=== PATIENT | male | born 1950 | race African-American/Black ===

== ENCOUNTER → 2017-04-12 | Outpatient (CLI) | payer OTHER | LOC: CIMAGING 10:27 | PROVIDERS: ATTEND Internal Medicine | DX: K30 Functional dyspepsia (principal); I71.4 Abdominal aortic aneurysm, without rupture | CPT/HCPCS: 76705-PO ==

== ENCOUNTER 2018-04-08 07:43 | Inpatient (IN) | payer OTHER ==
[2018-04-08] MEDS ORDERED: IOPAMIDOL (ISOVUE-300) 100 ML BTL ONE (07:52)
[2018-04-08 08:01] LABS: PLATELET COUNT 215 10^3/uL (150-400)
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
[2018-04-08] MEDS ORDERED: fentaNYL 100 MCG/2 ML INJ ONE ×2 (08:06→18:06)
[2018-04-08 08:08] LABS: INR 1.14 (0.83-1.16); PROTIME(PATIENT) 14.8 SEC (12.0-15.0)
[2018-04-08] MEDS ORDERED: fentaNYL 100 MCG/2 ML INJ IVP ONE (08:27)
[2018-04-08] MEDS ORDERED: LET GEL TOPICAL 1 EA SYR TP ONE (08:33)
--- NOTE | 2018-04-08 09:45 | CPEKG ---
Heart Rate: 87 RR Interval: 690 P-R Interval: 180 QRSD Interval: 62 QT Interval: 348 QTC Interval: 419 P [place]: 60 QRS [place]: 10 T Wave [place]: 48 EKG Severity - NORMAL ECG - EKG Impression: SINUS RHYTHM Electronically Signed By: Doug Trujillo 08-Apr-2018 14:13:38
[2018-04-08] MEDS ORDERED: ceFAZolin 2 GM/DEXTROSE 100 ML IV ONE (11:56)
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
[2018-04-08] MEDS ORDERED: NALOXONE HCL 0.4 MG/ML INJ IVP PRN ×3 (13:26→19:24)
[2018-04-08] MEDS ORDERED: ONDANSETRON 4 MG/2 ML VIAL IVP PRN ×2 (13:26→17:32)
[2018-04-08] MEDS ORDERED: LR 1,000 ML IV SCH (13:30)
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
[2018-04-08] MEDS ORDERED: LR 1,000 ML IV ONE (14:23)
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
[2018-04-08] MEDS ORDERED: BUPIVACAINE/EPI 0.5% 30 ML SDV ONE (15:38)
[2018-04-08] MEDS ORDERED: BUPIVACAINE 0.25% 30 ML SDV ONE (15:38)
[2018-04-08] MEDS ORDERED: EPINEPHrine 1 MG/ML INJ ONE (15:38)
[2018-04-08] MEDS ORDERED: LIDOCAINE 1% 300 MG/30 ML SDV ONE (15:38)
[2018-04-08] MEDS ORDERED: MIDAZOLAM 2 MG/2 ML VIAL IVP ONE (15:41)
[2018-04-08] MEDS ORDERED: fentaNYL 250 MCG/5 ML INJ ONE (15:44)
[2018-04-08] MEDS ORDERED: PROPOFOL 200 MG/20 ML VIAL ONE (15:45)
[2018-04-08] MEDS ORDERED: ONDANSETRON 4 MG/2 ML VIAL ONE (15:51)
[2018-04-08] MEDS ORDERED: SUGAMMADEX SODIUM 200 MG/2 ML VIAL IVP ONE (15:51)
[2018-04-08] MEDS ORDERED: ROCURONIUM 100 MG/10 ML VIAL ONE (15:51)
[2018-04-08] MEDS ORDERED: DEXAMETHASONE 4 MG/ML VIAL ONE (15:51)
[2018-04-08] MEDS ORDERED: LIDOCAINE 2% 5 ML SDV ONE (15:51)
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
[2018-04-08] MEDS ORDERED: PHENYLEPHRINE HCL 100 MCG/ML SYR ONE (16:51)
[2018-04-08] MEDS ORDERED: LR 500 ML IV PRN (17:32)
[2018-04-08] MEDS ORDERED: oxyCODONE IR 5 MG TAB PO PRN (17:32)
[2018-04-08] MEDS ORDERED: PROMETHAZINE HCL 25 MG/ML INJ IVP PRN (17:32)
[2018-04-08] MEDS ORDERED: fentaNYL 100 MCG/2 ML INJ IVP PRN (17:32)
[2018-04-08] MEDS ORDERED: ALBUTEROL 3 ML DEYVIAL IH PRN (17:32)
[2018-04-08] MEDS ORDERED: HYDROCODONE/APAP 5/325 TAB PO PRN (17:32)
[2018-04-08] MEDS ORDERED: ACETAMINOPHEN 500 MG TAB PO PRN (17:32)
--- NOTE | 2018-04-08 17:32 | POSTANESTH ---
Post Anesthetic Evaluation Cardiovascular Status: Tx Hyper/Hypo-tension Respiratory Status: Tx Decrease in SpO2 Level of Consciousness/Mental Status: Can Participate in Eval, Moderately Sleepy Pain Control: Adequate, Prn Tx Ordered Nausea/Vomiting Control: Adequate, Prn Tx Ordered Complications Possibly Related to Anesthesia: None Noted
[2018-04-08] MEDS ORDERED: DIPHENOXYLATE/ATROPINE LOMOTIL 1 TAB PO PRN (17:56)
[2018-04-08] MEDS ORDERED: TEMAZEPAM 15 MG CAP PO PRN (17:56)
--- NOTE | 2018-04-08 18:03 | POSTOPPROG ---
Post Op Note Date of Operation: 04/08/18 Surgeon: Parker Kingston Tempering Machine Operator: BRIGID Peralta Anesthesia: GET(General Endotracheal) Pre-op Diagnosis: Left femoral neck fracture Post-op Diagnosis: Left femoral neck fracture Procedure: Left hip ORIF of femoral neck fracture Inf/Abcess present in the surg proc area at time of surgery?: No Depth: Deep Incisional (Fascial) EBL: Minimal
[2018-04-08] MEDS ORDERED: LABETALOL HCL 5 MG/ML 20 ML MDV ONE (18:07)
[2018-04-08] MEDS ORDERED: HYDROmorphONE/DILAUDID 1 MG/ML INJ ONE (18:12)
[2018-04-08] MEDS: LABETALOL HCL 5 MG/ML 20 ML MDV IVP PRN ×2 (18:17→18:28)
[2018-04-08] MEDS: HYDROmorphONE/DILAUDID 1 MG/ML INJ IVP PRN ×2 (18:17→18:31)
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
[2018-04-08] MEDS ORDERED: HYDROmorphONE/DILAUDID 6 MG/30 ML PCA IV PRN (19:24)
[2018-04-08] MEDS: D5W 1/2 NS 1,000 ML IV SCH (19:46)
[2018-04-08] MEDS: FAMOTIDINE 20 MG/NACL 50 ML IV SCH ×2 (20:55→20:58)
--- NOTE | 2018-04-08 22:31 | POSTOPPROG ---
Post Op Note Date of Operation: 04/08/18 Surgeon: Sp Mohamud Anesthesiologist: BILLY Anesthesia: GET(General Endotracheal) Pre-op Diagnosis: RIB FRACTURES AND LEFT PNEUMOTHORAX Post-op Diagnosis: SAME Indication: PAIN SHORTNESS OF BREATH Procedure: LEFT TUBE THORACOSTOMY Findings: GOOD EXPANSION OF THE LUNG Inf/Abcess present in the surg proc area at time of surgery?: No Depth: Organ Space EBL: Minimal Complications: NONE Drains: Constavac
[2018-04-08] MEDS: ceFAZolin 2 GM/DEXTROSE 100 ML IV SCH (23:23)
[2018-04-09 21:00] LABS: PLATELET COUNT 144 10^3/uL (150-400)
[2018-04-10] MEDS: FAMOTIDINE 20 MG/NACL 50 ML IV SCH ×3 (05:11→08:37)
[2018-04-10] MEDS: ASPIRIN 81 MG CHEWABLE TAB PO SCH ×2 (05:11→08:37)
[2018-04-10] MEDS: RANOLAZINE 500 MG TAB.ER PO SCH ×3 (05:12→20:45)
[2018-04-10] MEDS: METOPROLOL TARTRATE 25 MG TAB PO SCH ×3 (05:12→20:47)
[2018-04-10] MEDS: ceFAZolin 2 GM/DEXTROSE 100 ML IV SCH (08:06)
--- NOTE | 2018-04-10 08:55 | SOAPPROG ---
SOAP Progress Note Assessment/Plan: Assessment: POD #2 closed reduction/internal fixation of left femoral neck fx: doing well, pain well controlled. Plan: TTWB. DVT prophylaxis: SCDs, IS, ANKITA ferreira. Continue chemoprophylaxis per trauma and hospitalists. PT/OT: appreciate their reccs. Pain: well controlled at this time. Dressing: maintain dry dressing over left hip, do not remove until d/w our office. Can continue to change abrasion dressings with dry dressing. F/U in clinic in 7-10 days or prn additional questions/concerns which may arise. Patient d/w and agreed upon in conjunction with Dr. Kingston. Subjective: Doing well, alone in room, able to respond appropriately to questions. Has passed flatus, no BM. Denies fever, chills, NVD, change in heat/color of extremity or around wound sites, worsening cough, congestion, dyspnea, worsening numbness/tingling, claudication. Has been attempting to ambulate with help of PT/OT. Objective: Vital Signs Temp Pulse Resp BP Pulse Ox 36.7 C 77 16 175/99 H 98 04/10/18 07:44 04/10/18 08:37 04/10/18 07:44 04/10/18 08:37 04/10/18 07:44 Laboratory Results 04/10/18 04:53 04/09/18 04:40 04/09/18 04/10/18 04/11/18 05:59 05:59 05:59 Intake Total 550 1600 Output Total 590 675 950 Balance -40 925 -950 PT 14.8 SEC (12.0-15.0) 04/08/18 07:30 INR 1.14 (0.83-1.16) 04/08/18 07:30 A/O. NAD. Non-labored breathing. CT in place. RRR. Afebrile. M/S: Wound sites with no abnormal bleeding/oozing/discharge, change in heat/ color. Multiple abrasions noted, covered with Tefla and no signs of infection at this time. TTP over left ribs, otherwise NTTP. Full AROM b/l in UE with 5/5 strength and no focal deficits. AROM of lower extremities: full AROM distally from left hip on with 5/5 strength present b/l in distal lower extremities b/l. Calves soft/supple and NTTP b/l with SCDs on and pumping. Brisk cap refill b/ l with negative b/l Homans. DNVI b/l in UE/LE with gross sensation intact and no signs of focal deficit. ICD10 Worksheet Patient Problems: Problems Problem Status Onset Abrasion, multiple sites Acute Flail chest Acute Pneumothorax Acute
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
[2018-04-10] MEDS: ENOXAPARIN 40 MG/0.4 ML SYR SC SCH (12:36)
[2018-04-10] MEDS: D5W 1/2 NS 1,000 ML IV SCH (13:59)
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
[2018-04-10] MEDS ORDERED: HYDROmorphONE/DILAUDID 1 MG/ML INJ IVP PRN (15:02)
[2018-04-10] MEDS ORDERED: METOPROLOL TARTRATE 25 MG TAB PO ONE (15:02)
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
[2018-04-10] MEDS: FAMOTIDINE 20 MG TAB PO SCH (20:45)
[2018-04-10] MEDS: HYDROmorphONE/DILAUDID 2 MG TAB PO PRN (20:45)
--- NOTE | 2018-04-10 20:59 | GPROG ---
[f rep st] PROGRESS NOTE DATE OF SERVICE: 04/09/2018 Please note that this a repeat dictation for the visit on 04/09/2018 due to problems with [employer] and the computer system, it was stated by the IT department that my note from yesterday has been lost. This is, therefore, a repeat dictation for continuity and care for the patient. ASSESSMENT: Closed reduction, internal fixation of left femoral neck fracture, doing well. Pain well-controlled, currently in the ICU. PLAN: TTWB, deep venous thrombosis prophylaxis, SCDs, IS, ANKITA ferreira, continue chemoprophylaxis per Trauma and Hospitalist. PT/OT: Appreciate their recommendations. Pain well-controlled at this time stressing maintain dry dressing over left hip. Do not remove until discussed with our office. Can continue to change abrasion dressings with dry dressings daily or p.r.n. hospital recommendations. Follow up in clinic in 7-10 days or p.r.n. additional questions or concerns which my arise. Advised patient to watch for any worsening change in range of motion or strength, abnormal numbness, tingling, change in heat or color of the extremity or around the wound site, and to seek immediate medical attention if seen. The patient was discussed with and agreed upon in conjunction with Dr. Kingston. SUBJECTIVE: Doing well, alone in room, able to respond appropriately to questions. States he is starting to feel "stronger," has passed flatus. No BM. Denies fever, chills, NVD, change in heat or color of the extremity or around wound sites, worsening cough, congestion, chest pain, dyspnea, worsening numbness, tingling, claudication. He has been not yet ambulatory at this time. OBJECTIVE: VITAL SIGNS: Temp 37.6 C, Pulse 60, Resp. rate 13 , BP 143/92 mmHg , O2 Sat 95% . GENERAL: AO/NAD. Non-labored breathing. CHEST: Chest tube in place. Regular rate and rhythm, afebrile. MUSCULOSKELETAL: Wound sites with no abnormal bleeding, oozing, discharge, change in heat or color. Multiple abrasions are noted. Covered with Telfa. No signs of infection at this time. TTP over left ribs. Otherwise NTTP. EXTREMITIES: Full AROM b/l in upper extremities with 5/5 strength. NEUROLOGICAL: No focal deficits. AROM of lower extremities: full AROM distally, left hip with 5/5 strength present bilaterally in distal lower extremities. Calves soft, supple and NTTP b/l with SCDs on, and brisk capillary refill b/l with negative b/l Homans. DNVI b/l in upper extremities, lower extremities with gross sensation intact and no signs of focal deficits. NECK: Full AROM. NTTP. Negative Lhermitte. Negative Spurling. RADIOLOGY: X-rays: Two postoperative views of his left hip show left hip closed reduction internal fixation in good position and alignment in the femoral neck with no evidence of fracture failure or hardware at this time. No other fractures, malalignments or deformities noted. Fracture line in good position and alignment. /[id number]/MODL MTDD
[2018-04-11] MEDS: HYDROmorphONE/DILAUDID 2 MG TAB PO PRN ×2 (06:25→19:17)
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
[2018-04-11] MEDS ORDERED: LACTULOSE 20 GM/30 ML UDCUP PO PRN (08:34)
[2018-04-11] MEDS ORDERED: POLYETHYLENE GLYCOL 3350 17 GM PKT PO PRN (08:34)
[2018-04-11] MEDS ORDERED: MAGNESIUM HYDROXIDE 30 ML UDCUP PO PRN (08:34)
[2018-04-11] MEDS ORDERED: BISACODYL 10 MG SUPP PR PRN (08:34)
[2018-04-11] MEDS: METOPROLOL TARTRATE 25 MG TAB PO SCH ×2 (09:03→20:37)
[2018-04-11] MEDS: FAMOTIDINE 20 MG TAB PO SCH ×2 (09:03→20:36)
[2018-04-11] MEDS: ENOXAPARIN 40 MG/0.4 ML SYR SC SCH (09:03)
[2018-04-11] MEDS: ASPIRIN 81 MG CHEWABLE TAB PO SCH (09:03)
[2018-04-11] MEDS: RANOLAZINE 500 MG TAB.ER PO SCH ×2 (09:03→20:35)
[2018-04-11] MEDS: SENNOSIDES/DOCUSATE SODIUM TAB PO SCH ×2 (09:06→20:36)
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
[2018-04-11 10:28] LABS: PLATELET COUNT 121 10^3/uL (150-400)
--- NOTE | 2018-04-11 12:37 | ASMTCMCOM ---
CM Note CM Note Notes: Patient had surgery yesterday, 04-10-18. Patient working with therapies. PT/OT are recommending inpatient rehab. Will await their evaluation. CM will follow. Date Signed: 04/11/2018 12:35 PM Electronically Signed By:Dee Dee Suarez LCSW
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
[2018-04-12 05:56] LABS: PLATELET COUNT 126 10^3/uL (150-400)
[2018-04-12] MEDS: SENNOSIDES/DOCUSATE SODIUM TAB PO SCH ×2 (08:49→21:28)
[2018-04-12] MEDS: ENOXAPARIN 40 MG/0.4 ML SYR SC SCH (08:49)
[2018-04-12] MEDS: RANOLAZINE 500 MG TAB.ER PO SCH ×2 (08:49→21:29)
[2018-04-12] MEDS: ASPIRIN 81 MG CHEWABLE TAB PO SCH (08:49)
[2018-04-12] MEDS: FAMOTIDINE 20 MG TAB PO SCH ×2 (08:49→21:29)
[2018-04-12] MEDS: METOPROLOL TARTRATE 25 MG TAB PO SCH ×2 (08:55→21:29)
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
--- NOTE | 2018-04-12 12:49 | ASMTCMCOM ---
CM Note CM Note Notes: PT/OT continuing to recommend Inpatient Rehab, although patient is making gains. Pain control is still an issue. I spoke with Inpatient Rehab who isn't sure if he qualifies. They will have to reassess Sunday; they cannot take patients over the weekend. I spoke with patient about his desires - SNF, home care, etc - and he wanted to talk to his first. I spoke with her, she will not be in until later today. We will work with the patient once he and his have discussed. I anticipate he may need SNF v home care, although he has been making gains quickly. Case Management will follow. Date Signed: 04/12/2018 12:48 PM Electronically Signed By:Crystal Vazquez RN
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
[2018-04-12] MEDS: APIXABAN 5 MG TAB PO SCH (21:29)
[2018-04-13] MEDS: SENNOSIDES/DOCUSATE SODIUM TAB PO SCH ×2 (09:23→21:15)
[2018-04-13] MEDS: APIXABAN 5 MG TAB PO SCH ×2 (09:24→21:15)
[2018-04-13] MEDS: ASPIRIN 81 MG CHEWABLE TAB PO SCH (09:24)
[2018-04-13] MEDS: RANOLAZINE 500 MG TAB.ER PO SCH ×2 (09:24→21:15)
[2018-04-13] MEDS: FAMOTIDINE 20 MG TAB PO SCH ×2 (09:24→21:15)
[2018-04-13] MEDS: METOPROLOL TARTRATE 25 MG TAB PO SCH ×2 (09:31→21:15)
[2018-04-13] MEDS ORDERED: ONDANSETRON DISINTEGRATING 4 MG TAB PO PRN (09:34)
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
[2018-04-13] MEDS: BACITRACIN OINTMENT 1 PACKET TP SCH (10:00)
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
--- NOTE | 2018-04-13 16:48 | ASMTCMCOM ---
CM Note CM Note Notes: PT recommending HHC w/24 hr supervision now, OT still recommending IPR. CM met w/pt and he felt he might be ok to dc home w/HHC but would like for us to check in with him again tomorrow after he works with therapy. He lives at home w/. CM will follow. Date Signed: 04/13/2018 04:47 PM Electronically Signed By:Bozena العلي RN
[2018-04-14] MEDS ORDERED: HYDROCODONE/APAP 5/325 TAB PO PRN (00:54)
[2018-04-14] MEDS ORDERED: ACETAMINOPHEN 325 MG TAB PO PRN (00:54)
[2018-04-14] MEDS: METOPROLOL TARTRATE 25 MG TAB PO SCH ×2 (07:51→20:30)
[2018-04-14] MEDS: HYDROCODONE/APAP 10/325 TAB PO PRN (07:55)
[2018-04-14] MEDS: RANOLAZINE 500 MG TAB.ER PO SCH ×2 (07:55→20:30)
[2018-04-14] MEDS: APIXABAN 5 MG TAB PO SCH ×2 (07:56→20:30)
[2018-04-14] MEDS: FAMOTIDINE 20 MG TAB PO SCH ×2 (07:56→20:30)
[2018-04-14] MEDS: SENNOSIDES/DOCUSATE SODIUM TAB PO SCH ×2 (07:56→20:30)
[2018-04-14] MEDS: ASPIRIN 81 MG CHEWABLE TAB PO SCH (07:57)
[2018-04-14] MEDS: BACITRACIN OINTMENT 1 PACKET TP SCH (07:57)
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
--- NOTE | 2018-04-14 15:11 | ASMTCMCOM ---
CM Note CM Note Notes: Chart reviewed. Per therapies, recommendation is for C to follow. discussed with patient and he is agreeable. Referrals placed in allscripts. Pending acceptance. CM o follow. Plan: Home with HHC Date Signed: 04/14/2018 03:10 PM Electronically Signed By:Shayy Azevedo RN
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
[2018-04-15] MEDS: METOPROLOL TARTRATE 25 MG TAB PO SCH (07:56)
[2018-04-15] MEDS: RANOLAZINE 500 MG TAB.ER PO SCH (07:59)
[2018-04-15] MEDS: APIXABAN 5 MG TAB PO SCH (08:00)
[2018-04-15] MEDS: FAMOTIDINE 20 MG TAB PO SCH (08:00)
[2018-04-15] MEDS: ASPIRIN 81 MG CHEWABLE TAB PO SCH (08:00)
[2018-04-15] MEDS: SENNOSIDES/DOCUSATE SODIUM TAB PO SCH (08:00)
[2018-04-15] MEDS: HYDROCODONE/APAP 10/325 TAB PO PRN (08:01)
[2018-04-15 08:05] VITALS: BP 159/108
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
[2018-04-15] MEDS: BACITRACIN OINTMENT 1 PACKET TP SCH (10:00)
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
--- NOTE | 2018-04-15 14:17 | PDIAF ---
- Diagnosis Code Status: Full Code - Medication Management Discharge Medications: Medications to Continue on Transfer Apixaban [Eliquis] 5 mg PO BID 04/08/18 [Last Taken Unknown] Aspirin [Aspirin 81mg (*)] 81 mg PO DAILY 04/08/18 [Last Taken Unknown] Clopidogrel Bisulfate [Plavix (*)] 75 mg PO DAILY 04/08/18 [Last Taken Unknown] Dicyclomine [Bentyl 10 MG (*)] 20 mg PO QID PRN 04/08/18 [Last Taken Unknown] Metoprolol Tartrate [Lopressor 25 mg (*)] 12.5 mg PO BID 04/08/18 [Last Taken Unknown] Omeprazole 40 mg PO DAILY 04/08/18 [Last Taken Unknown] Ranolazine [Ranexa] 500 mg PO BID 04/08/18 [Last Taken Unknown] Bacitracin Ointment 1 marbella TP DAILY #30 packet 04/15/18 [Last Taken Unknown] Hydrocodone/APAP 5/325 [Price 5/325 (*)] 1 tab PO Q4HRS PRN #30 tab 04/15/18 [ Last Taken Unknown] Metoprolol Tartrate [Lopressor 25 mg (*)] 50 mg PO BID #30 tab 04/15/18 [Last Taken Unknown] Discharge Medications: Refer to the Discharge Home Medication list for PRN reason. - Orders Services needed: Home Care, Registered Nurse, Physical Therapy, Occupational Therapy Home Care Face to Face: I certify that this patient was under my care and that I had the required [id number] encounter meeting the encounter requirements on the discharge day. My findings support the fact that the patient is homebound as defined in Home Care Face to Face Continued: CMS Chapter 7 Medicare Benefits Manual 30.1.1 , The condition of the patient is such that there exists a normal inability to leave home and consequently, leaving home would require a considerable and taxing effort. Diet Recommendation: no restrictions on diet Diet Texture: Regular Texture Diet Additional Instructions: Regarding Left Hip Fracture Plan: TTWB. DVT prophylaxis: SCDs, IS, ANKITA ferreira. Continue chemoprophylaxis per trauma and hospitalists. PT/OT for ambulation with safe precautions. Dressing: maintain dry dressing over left hip, do not remove until d/w our office. Can continue to change abrasion dressings with dry dressing. F/U in clinic with Dr. Kingston in 7-10 days or prn additional questions/ concerns which may arise. Can call our office at [phone] to schedule. Call our office with fever, chills, change in heat/color of extremity, worsening change in ROM or strength, abnormal numbness/tingling. - Follow Up Care Current Providers and Referrals: Parker Kingston MD [Medical Doctor] - (10-14 days ) Patient,NotPresent [Unknown] - As per Instructions
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
== END 2018-04-15 15:55 | disposition home health service (06) | DRG 956 ==
LOC: EDUNIT# → F2N 10:51 → F3N 04-11 14:22
PROVIDERS: ADMIT Surgery; ATTEND Surgery
PROC: 0QS704Z Reposition Left Upper Femur with Internal Fixation Device, Open Approach (ICD-10-PCS; principal; 2018-04-08 16:00)
PROC: 0B9L30Z Drainage of Left Lung with Drainage Device, Percutaneous Approach (ICD-10-PCS; principal; 2018-04-08 16:00)
DX: S72.002A Fracture of unspecified part of neck of left femur, initial encounter for closed fracture (principal); S22.43XA Multiple fractures of ribs, bilateral, initial encounter for closed fracture; S27.0XXA Traumatic pneumothorax, initial encounter; J98.11 Atelectasis; V18.0XXA Pedal cycle driver injured in noncollision transport accident in nontraffic accident, initial encounter; I10 Essential (primary) hypertension; K59.00 Constipation, unspecified; I71.4 Abdominal aortic aneurysm, without rupture; I71.2 Thoracic aortic aneurysm, without rupture; K76.89 Other specified diseases of liver; K21.9 Gastro-esophageal reflux disease without esophagitis; I25.10 Atherosclerotic heart disease of native coronary artery without angina pectoris; E78.5 Hyperlipidemia, unspecified; Z95.5 Presence of coronary angioplasty implant and graft; Z86.718 Personal history of other venous thrombosis and embolism; Z79.01 Long term (current) use of anticoagulants
CPT/HCPCS: 82435-PO; 82565-PO; 82947-PO; 84132-PO; 84295-PO; 84520-PO; 85014-PO; 92507-GN; 92523-GN; 96374; 97110-GP; 97116-GP; 97161-GP; 97166-GO; 97530-GO; 97530-GP; 97535-GO; C1713; C1769; G0390; G8978-GP-CK; G8979-GP-CI; G8987-GO-CM; G8988-GO-CJ; G9165-GN-CI; G9166-GN-CH; G9167-GN-CH; J0171; J0690; J1100; J1170; J1650; J2250; J2270; J2370; J2405; J2704; J3010; Q9967